=== PATIENT | female | born 1965 | race Caucasian/White ===

== ENCOUNTER → 2020-10-29 | Outpatient (CLI) | payer OTHER ==
[~2020-10-29] MED LIST: HOLD METFORMIN - RECEIVED CONTRAST 20 ML VIAL IV SCH; IOHEXOL 350 MG/ML 100 ML (OMNIPAQUE 350) VIAL IV ONE; NS 100 ML (IVPB) BAG IV ONE
[2020-10-29 15:16] LABS: ALBUMIN 4.2 GM/DL (3.2-4.5); BUN/CREATININE RATIO 23; CALCIUM 8.9 MG/DL (8.5-10.1); CARBON DIOXIDE 23 MMOL/L (21-32); CHLORIDE 107 MMOL/L (98-107); CREATININE SERUM 0.84 MG/DL (0.60-1.30); GFR ESTIMATED > 60; GLUCOSE 113 MG/DL (70-105); PHOSPHORUS 3.6 MG/DL (2.3-4.7); POTASSIUM 4.3 MMOL/L (3.6-5.0); SODIUM 140 MMOL/L (135-145)
--- NOTE | 2020-10-29 16:21 | Diagnostic Imaging Report ---
PROCEDURE: CT angiography of the chest with contrast. TECHNIQUE: Multiple contiguous axial images were obtained through the chest after uneventful bolus administration of intravenous contrast. 3D reconstructed CTA MIP acquisitions were also performed. Auto Exposure Controls were utilized during the CT exam to meet ALARA standards for radiation dose reduction. INDICATION: Shortness of breath with elevated D-dimer. No prior studies are available for comparison. Evaluation of the pulmonary arterial system is without evidence of thromboembolism. No filling defects are seen within the central, lobar or segmental branches. The thoracic aorta is normal caliber. No dissection is seen. There is no pericardial or pleural fluid identified. No pulmonary infiltrates, nodules or masses are detected. Upper abdomen does show some low-attenuation lesions in the left lobe of the liver suggestive of cysts. IMPRESSION: 1. No evidence of pulmonary embolism or thoracic aortic dissection. Dictated by: Dictated on workstation # [id number]
== END ==
LOC: RAD 14:35
PROVIDERS: ATTEND Nurse Practitioner Family
DX: J44.9 Chronic obstructive pulmonary disease, unspecified (principal); R79.1 Abnormal coagulation profile
CPT/HCPCS: 36415; 71275; 80069